=== PATIENT | male | born 1975 | race African-American/Black ===

== ENCOUNTER 2022-06-14 11:49 | Emergency (ER) | payer OTHER ==
[~2022-06-14] VITALS: Ht 167.6 cm; Wt 79.0 kg
[2022-06-14 13:00] VITALS: BP 153/90
[2022-06-14] MEDS ORDERED: METH750T22 PO (13:39)
== END 2022-06-14 13:50 | disposition home or self-care (01) ==
LOC: ER 11:49
DX: R07.89 Other chest pain (principal)
CPT/HCPCS: 71046; 93005